=== PATIENT | male | born 1980 | race Caucasian/White ===

== ENCOUNTER 2020-07-08 11:27 | Outpatient (NON) | payer BC, SELFPAY ==
[2020-07-08 22:30] LABS: SARS-CoV-2 RNA PCR Positive
== END 2020-07-08 11:28 ==
LOC: ANHCOVIDDT 11:31
PROVIDERS: PCP Family Medicine; Visit Provider Family Medicine
DX: U07.1 COVID-19 (principal)
CPT/HCPCS: 87635; C9803; U0003